=== PATIENT | female | born 1975 | race Caucasian/White ===

== ENCOUNTER → 2017-05-28 | Outpatient (CLI) | payer BC ==
--- NOTE | 2017-05-28 09:45 | RAD ---
DATE: 05/28/2017 EXAM: MAMMO JAMSHID SCREENING BILATERAL HISTORY: Routine screening COMPARISON: 05/22/2016 This study was interpreted with the benefit of Computerized Aided Detection (CAD). The breast parenchyma shows scattered fibroglandular densities. Breast parenchyma level B. FINDINGS: No new or enlarging breast densities are seen. Minimal benign type calcifications present. No suspicious microcalcifications have developed. Benign-appearing lymph node type densities are present in the axillary regions. IMPRESSION: Stable mammograms without evidence of malignancy. BI-RADS CATEGORY: 2 BENIGN FINDING(S) RECOMMENDED FOLLOW-UP: 12M 12 MONTH FOLLOW-UP PQRS compliance statement: Patient information was entered into a reminder system with a target due date for the next mammogram. Mammography is a sensitive method for finding small breast cancers, but it does not detect them all and is not a substitute for careful clinical examination. A negative mammogram does not negate a clinically suspicious finding and should not result in delay in biopsying a clinically suspicious abnormality. "Our facility is accredited by the [employer] Mammography [employer]."
== END | disposition home or self-care (01) ==
LOC: MAMMO 09:01
PROVIDERS: ATTEND Obstetrics & Gynecology
DX: Z12.31 Encounter for screening mammogram for malignant neoplasm of breast (principal)
CPT/HCPCS: 77063; G0202; 77067

== ENCOUNTER → 2018-07-12 | Outpatient (CLI) | payer BC ==
--- NOTE | 2018-07-12 13:08 | RAD ---
DATE: 07/12/2018 EXAM: MAMMO JAMSHID SCREENING BILATERAL HISTORY: Routine screening COMPARISON: 01/25/2017 This study was interpreted with the benefit of Computerized Aided Detection (CAD). Breast Density: HETERO The breast parenchyma is heterogenously dense, which could reduce sensitivity of mammography. Breast parenchyma level C. FINDINGS: 2-D and 3-D tomosynthesis imaging was performed in CC and MLO projections. No new or enlarging breast densities are seen. Benign type calcification is present. No suspicious microcalcifications have developed. IMPRESSION: Stable mammograms without evidence of malignancy. BI-RADS CATEGORY: 2 BENIGN FINDING(S) RECOMMENDED FOLLOW-UP: 12M 12 MONTH FOLLOW-UP PQRS compliance statement: Patient information was entered into a reminder system with a target due date for the next mammogram. Mammography is a sensitive method for finding small breast cancers, but it does not detect them all and is not a substitute for careful clinical examination. A negative mammogram does not negate a clinically suspicious finding and should not result in delay in biopsying a clinically suspicious abnormality. "Our facility is accredited by the [employer] Mammography [employer]."
== END | disposition home or self-care (01) ==
LOC: MAMMO 09:26
PROVIDERS: ATTEND Obstetrics & Gynecology
DX: Z12.31 Encounter for screening mammogram for malignant neoplasm of breast (principal)
CPT/HCPCS: 77063; 77067

== ENCOUNTER → 2019-08-20 | Outpatient (CLI) | payer BC ==
--- NOTE | 2019-08-21 17:18 | RAD ---
BILATERAL SCREENING MAMMOGRAM, 3-D History: Routine screening. Comparison: 07/12/2018, 05/28/2017, 05/22/2016, 05/21/2015. Technique: MLO and CC digital tomosynthesis (3D) images obtained. Radiologist reviewed these images on dedicated workstation. Motion is present on the left MLO view. Findings: Breast Tissue Density C : The breasts are heterogeneously dense, which may obscure small masses. There are no dominant masses, suspicious microcalcifications, or architectural distortion. There is an asymmetry in the far posterior outer breast 7 cm from the nipple. This probably represents summation of breast parenchyma but it is more evident than on the prior exams. IMPRESSION: Spot compression imaging of the left outer breast posteriorly recommended in the CC projection. Repeat left MLO view is recommended. BI-RADS Category 0: Incomplete: Need additional imaging evaluation. The images were reviewed with computer-aided detection. Patient information is entered into reminder system with a target due date for the next screening mammogram. Mammography is the most sensitive method for finding small breast cancers, but it does not detect them all and is not a substitute for careful clinical examination. A negative mammogram does not negate a clinically suspicious finding and should not result in delay in biopsying a clinically suspicious abnormality. "Our facility is accredited by the [employer] Mammography [employer]." Electronically signed by: Ebenezer Padilla MD (08/21/2019 5:14 PM) [facility]
== END | disposition home or self-care (01) ==
LOC: MAMMO 08:21
PROVIDERS: ATTEND Obstetrics & Gynecology
DX: Z12.31 Encounter for screening mammogram for malignant neoplasm of breast (principal)
CPT/HCPCS: 77063; 77067

== ENCOUNTER → 2019-09-02 | Outpatient (CLI) | payer BC ==
--- NOTE | 2019-09-02 15:05 | RAD ---
Examination: 1. Left digital diagnostic mammogram. 2. Left targeted breast ultrasound. INDICATION: 44-year-old woman recalled from screening for an asymmetry in the lateral posterior left breast. COMPARISON: Bilateral mammogram of 05/28/2017, 07/12/2018, and 08/20/2019. TECHNIQUE: Full field CC, XCCL, MLO and ML views of the left breast were obtained with 2-D technique along with a left CC spot compression view. Targeted ultrasound of the lateral posterior left breast in the lower-outer quadrant was also performed. FINDINGS: Additional views of the left breast shows heterogeneously dense breast parenchyma with persistent mammographic asymmetry in the lateral posterior left breast measuring 9 mm in size. Targeted ultrasound of the left breast in the lower-outer quadrant identified at the 4:00 position 5 cm from the nipple an 8.5 mm hypoechoic parallel orientation oval mass with microlobulated contours. This is mildly suspicious. It likely correlates with the mammographic finding recalled from screening. IMPRESSION: Suspicious 9 mm mass in the left breast at the 4:00 position 5 cm from the nipple. Ultrasound-guided attempt at cyst aspiration is recommended with immediate core needle biopsy if aspiration fails. Stereotactic core needle biopsy should be an available option for satisfactory tissue sampling if post biopsy clip images are discrepant from the mammographic mass recalled from screening. BI-RADS Category 4 Findings suspicious for malignancy. Biopsy recommended. Patient entered into a reminder system with target due date for next mammogram. BI-RADS 4 -- suspicious abnormality, biopsy recommended
== END | disposition home or self-care (01) ==
LOC: MAMMO 13:39
PROVIDERS: ATTEND Obstetrics & Gynecology
DX: R92.8 Other abnormal and inconclusive findings on diagnostic imaging of breast (principal)
CPT/HCPCS: 76641; 77065

== ENCOUNTER → 2020-09-13 | Outpatient (CLI) | payer BC, OTHER ==
--- NOTE | 2020-09-14 13:37 | RAD ---
DATE: 09/13/2020 10:30 AM EXAM: MAMMO JAMSHID SCREENING BILATERAL HISTORY: Screening COMPARISON: 08/20/2019, 07/12/2018 Bilateral CC and MLO views of the breasts were performed. Bilateral breast tomosynthesis was performed in CC and MLO projections. This study was interpreted with the benefit of Computerized Aided Detection (CAD). FINDINGS: Breast Density: HETERO The breast parenchyma Is heterogeneously dense, which could reduce sensitivity of mammography. Breast parenchyma level C No suspicious masses, microcalcifications or architectural distortion is present to suggest malignancy in either breast. The visualized axillae are unremarkable. IMPRESSION: No mammographic evidence of malignancy. BI-RADS CATEGORY: 1 NEGATIVE RECOMMENDED FOLLOW-UP: 12M 12 MONTH FOLLOW-UP Annual screening mammography is recommended, unless clinically indicated sooner based on symptoms or change in physical exam. PQRS compliance statement: Patient information was entered into a reminder system with a target due date for the next mammogram. Mammography is a sensitive method for finding small breast cancers, but it does not detect them all and is not a substitute for careful clinical examination. A negative mammogram does not negate a clinically suspicious finding and should not result in delay in biopsying a clinically suspicious abnormality. "Our facility is accredited by the [employer] Mammography [employer]."
== END ==
LOC: MAMMO 10:21
PROVIDERS: ATTEND Nurse Practitioner Family
DX: Z12.31 Encounter for screening mammogram for malignant neoplasm of breast (principal)
CPT/HCPCS: 77063; 77067

== ENCOUNTER → 2021-09-19 | Outpatient (CLI) | payer OTHER ==
--- NOTE | 2021-09-19 11:34 | RAD ---
Bilateral digital screening 2-D and 3-D (digital breast tomosynthesis) mammogram: Reason for examination: Routine screening. Comparison: Mammograms from 09/13/2020, and 08/20/2019, 07/12/2018. Left breast ultrasound from 0. Interpretation was made with the benefit of CAD. FINDINGS: Breast density: Category B. There are scattered areas of fibroglandular density. No suspicious breast mass, malignant appearing calcifications, or architectural distortion is seen. A gain seen is a biopsy marker in approximately 4:00 position of the left breast at posterior depth fro m previous benign biopsy. There is some nodularity breast tissue in this location which is unchanged. IMPRESSION: No evidence of malignancy. Assessment: BI-RADS 2. Benign findings. Recommendation: Routine screening mammograms. The patient will receive a letter with the results in the mail. Patient information will be entered i nto the mammography reminder system with a target recall date for the next mammogram. A reminder nicole er will be generated. Electronically signed by: Claudia Forrest MD (09/19/2021 11:31 AM) [id number]
== END ==
LOC: MAMMO 10:52
PROVIDERS: ATTEND Nurse Practitioner Family
DX: Z12.31 Encounter for screening mammogram for malignant neoplasm of breast (principal)
CPT/HCPCS: 77063; 77067